=== PATIENT | female | born 2000 | race Hispanic/Latino ===

== ENCOUNTER 2023-07-22 02:59 | Emergency (ER) | payer SELFPAY ==
[2023-07-22] MEDS ORDERED: ACETAMINOPHEN 500 MG TAB ONE (03:42)
[2023-07-22] MEDS ORDERED: KETOROLAC 30 MG/ML INJ ONE (03:43)
[2023-07-22] MEDS ORDERED: methocarbamoL 500 MG TAB ONE (03:43)
--- NOTE | 2023-07-22 05:14 | ER ---
Nurse's Notes [facility] Name: Lyndsey Patel Age: 23 yrs Sex: Female : 2000 Arrival Date: 07/22/2023 Time: 02:59 Bed 20 Private MD: Diagnosis: Contusion of left forearm;Contusion of left lower leg;Abrasion of left forearm Presentation: 07/21 03:31 Chief complaint: Patient states: [place] jw7 My left arm, left leg and right shoulder hurt. Coronavirus screen: At this time, the client does not indicate any symptoms associated with coronavirus-19. Ebola Screen: No symptoms or risks identified at this time. Initial Sepsis Screen: Does the patient meet any 2 criteria? No. Patient's initial sepsis screen is negative. Does the patient have a suspected source of infection? No. Patient's initial sepsis screen is negative. Risk Assessment: Do you want to hurt yourself or someone else? Patient reports no desire to harm self or others. Onset of symptoms was July 22, 2023. 03:31 Method Of Arrival: Ambulatory [facility] 03:31 Acuity: RITESH 3 jw7 Triage Assessment: 03:34 General: Appears in no apparent distress. uncomfortable, Behavior is calm, cooperative, jw7 appropriate for age. Pain: Complains of pain in right scapular area, left arm and left leg Pain does not radiate. Pain currently is 8 out of 10 on a pain scale. Quality of pain is described as throbbing, stinging, Pain began suddenly, Is continuous. EENT: No deficits noted. No signs and/or symptoms were reported regarding the EENT system. Neuro: Level of Consciousness is awake, alert, obeys commands, Oriented to person, place, time, situation, Appropriate for age. Cardiovascular: Heart tones S1 S2 Capillary refill < 3 seconds Patient's skin is warm and dry. Respiratory: Airway is patent Trachea midline Respiratory effort is even, unlabored, Respiratory pattern is regular, symmetrical, Breath sounds are clear bilaterally. GI: Abdomen is round non-distended, Bowel sounds present X 4 quads. Abd is soft and non tender X 4 quads. : No deficits noted. No signs and/or symptoms were reported regarding the genitourinary system. Derm: Skin is healthy with good turgor, Skin is dry, Skin is normal, Skin temperature is warm Wound noted dorsal aspect of left forearm and left olson. Musculoskeletal: Circulation, motion, and sensation intact. Range of motion: intact in all extremities. 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 - Infectious Disease History:: Denies. - Social history:: Smoking status: Patient denies any tobacco usage or history of. Patient/guardian denies using alcohol, street drugs, IV drugs. Screenin:37 [facility] ED Fall Risk Assessment (Adult) History of falling in the last 3 months, jw7 including since admission Yes- single mechanical fall (1 pt) Confusion or Disorientation No (0 pts) Intoxicated or Sedated No (0 pts) Impaired Gait No (0 pts) Mobility Assist Device Used No (0 pt) Altered Elimination No (0 pt) Score/Fall Risk Level 0 - 2 = Low Risk Oriented to surroundings, Maintained a safe environment, Educated pt \T\ family on fall prevention, incl call for assistance when getting out of bed. Abuse screen: Denies threats or abuse. Denies injuries from another. Nutritional screening: No deficits noted. Tuberculosis screening: No symptoms or risk factors identified. Assessment: 03:37 General: See Triage Assessment. jw7 04:31 Reassessment: Patient appears in no apparent distress at this time. No changes from jw7 previously documented assessment. Patient and/or family updated on plan of care and expected duration. Pain level reassessed. Patient is alert, oriented x 3, equal unlabored respirations, skin warm/dry/pink. 05:21 Reassessment: Patient appears in no apparent distress at this time. Patient and/or jw7 family updated on plan of care and expected duration. Pain level reassessed. Patient is alert, oriented x 3, equal unlabored respirations, skin warm/dry/pink. Patient states symptoms have improved. Vital Signs: 03:31 Pulse 81; Resp 20 S; Temp 98.3(O); Pulse Ox 97% on R/A; Weight 90.72 kg; Height 5 ft. 4 jw7 in. ; Pain 8/10; 04:00 BP 114 / 93; Pulse 70; Resp 16 S; Pulse Ox 99% on R/A; jw7 05:00 BP 115 / 85; Pulse 68; Resp 17 S; Pulse Ox 99% on R/A; jw7 03:31 Body Mass Index 34.33 (90.72 kg, 162.56 cm) jw7 03:31 Pain Scale: Adult jw7 ED Course: 03:05 Patient arrived in ED. gm2 03:05 Rylan Sams MD is Attending Physician. ec2 03:31 Patricia Zamudio RN is Primary Nurse. jw7 03:34 Triage completed. jw7 03:34 Arm band placed on. jw7 03:37 Patient has correct armband on for positive identification. Bed in low position. Call jw7 light in reach. Provided Education on: Use of Call Light. 04:00 Forearm Left XRAY In Process Unspecified. EDMS 04:00 Tib Fib Left XRAY In Process Unspecified. EDMS 05:23 No provider procedures requiring assistance completed. Patient did not have IV access jw7 during this emergency room visit. Administered Medications: 03:55 Drug: Ketorolac IM 30 mg IM once Route: IM; Site: right deltoid; jw7 05:22 Follow up: Response: No adverse reaction; Marked relief of symptoms jw7 03:55 Drug: Acetaminophen PO 1000 mg PO once Route: PO; jw7 05:22 Follow up: Response: No adverse reaction; Marked relief of symptoms jw7 03:55 Drug: Methocarbamol PO 500 mg PO once Route: PO; jw7 05:22 Follow up: Response: No adverse reaction; Marked relief of symptoms jw7 Medication: 05:23 VIS not applicable for this client. jw7 Outcome: 05:13 Discharge ordered by . ec2 05:23 Discharged to home ambulatory, jw7 05:23 Condition: stable 05:23 Discharge instructions given to patient, Instructed on discharge instructions, follow up and referral plans. medication usage, Demonstrated understanding of instructions, follow-up care, medications, Prescriptions given X 1, 05:23 Patient left the ED. jw7 Signatures: [facility] Patricia Harvey RN RN jw7 Rylan Sams MD MD ec2 Noemi Croft gm2 Corrections: (The following items were deleted from the chart) 03:35 03:34 Home Meds: None; jw7 jw7
--- NOTE | 2023-07-22 05:14 | EDPHYS ---
Phys[facility] Documentation [facility] Name: Lyndsey Patel Age: 23 yrs Sex: Female : 2000 Arrival Date: 07/22/2023 Time: 02:59 Bed 20 Private MD: ED Physician Rylan Sams HPI: 07/21 03:29 This 23 yrs old Female presents to ER via Unassigned with complaints of Fall ec2 Injury, Arm Pain, Leg Pain. 03:29 Patient arrives today for evaluation after a fall. Complaining of left forearm and left ec2 leg pain. States her last tetanus shot was approximately 2 to 3 years ago. Patient reports no loss conscious, no blood thinners, no head or neck pain.. 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 - Infectious Disease History:: Denies. - Social history:: Smoking status: Patient denies any tobacco usage or history of. Patient/guardian denies using alcohol, street drugs, IV drugs. ROS: 03:29 Constitutional: as per hpi ec2 Exam: 03:29 Constitutional: GEN: NAD Head: atraumatic Eyes: EOMI Ears: External ears are ec2 normal. CV: regular rate LUNGS: no respiratory distress ABD: non-distended SKIN:abrasion to the left forearm as well as abrasion to the left anterior tibia. MSK: Mid forearm with significant swelling appreciated, intact distal neurovascular status. Proximal and distal joints with good range of motion. Left anterior tibia with TTP, no deformity present. Intact distal neurovascular status. NEURO: moves all extremities equally Vital Signs: 03:31 Pulse 81; Resp 20 S; Temp 98.3(O); Pulse Ox 97% on R/A; Weight 90.72 kg; Height 5 ft. 4 jw7 in. ; Pain 8/10; 04:00 BP 114 / 93; Pulse 70; Resp 16 S; Pulse Ox 99% on R/A; jw7 05:00 BP 115 / 85; Pulse 68; Resp 17 S; Pulse Ox 99% on R/A; jw7 03:31 Body Mass Index 34.33 (90.72 kg, 162.56 cm) 7 03:31 Pain Scale: Adult jw7 MDM: 03:24 Patient medically screened. ec2 03:30 Data reviewed: vital signs. ED course: Patient arrives today for evaluation after ec2 injuring her left forearm and left leg. Examination remarkable for MSK findings as above. Patient up-to-date on tetanus, will forego Boostrix. Will obtain radiographs of the left forearm and left tib-fib. Evaluating for differential diagnosis including bony fracture, contusion, abrasion.. 05:10 ED course: Forearm x-ray and tib-fib x-ray independently reviewed and interpreted by ec2 me, shows no acute bony fracture, no evidence of dislocation.. 07/21 03:29 Order name: Forearm Left XRAY; Complete Time: 06:30 ec2 07/21 03:29 Order name: Tib Fib Left XRAY; Complete Time: 06:30 ec2 Administered Medications: 03:55 Drug: Ketorolac IM 30 mg IM once Route: IM; Site: right deltoid; jw7 05:22 Follow up: Response: No adverse reaction; Marked relief of symptoms jw7 03:55 Drug: Acetaminophen PO 1000 mg PO once Route: PO; jw7 05:22 Follow up: Response: No adverse reaction; Marked relief of symptoms jw7 03:55 Drug: Methocarbamol PO 500 mg PO once Route: PO; jw7 05:22 Follow up: Response: No adverse reaction; Marked relief of symptoms jw7 Disposition Summary: 07/22/23 05:13 Discharge Ordered Notes: Location: Home ec2 Condition: Stable ec2 Diagnosis - Contusion of left forearm ec2 - Contusion of left lower leg ec2 - Abrasion of left forearm ec2 Followup: ec2 - With: Private Physician - When: - Reason: Re-evaluation by your physician Discharge Instructions: - Discharge Summary Sheet ec2 - Contusion, [id number] ec2 Forms: - Medication Reconciliation Form ec2 - Antibiotic Education ec2 - Prescription Opioid Use ec2 - Patient Portal Instructions ec2 - Leadership Thank You Letter ec2 Prescriptions: - methocarbamol 500 mg Oral tablet - take 2 tablets ORAL route 4 times per day; 20 tablet; Refills: 0, Product ec2 Selection Permitted Signatures: Dispatcher [employer] Patricia Harvey RN RN jw7 Rylan Sams MD MD ec2 Corrections: (The following items were deleted from the chart) 03:35 03:34 Home Meds: None; jw7 jw7
[2023-07-22 05:47] VITALS: BP 115/85; TEMP 98.3; O2SAT 99
--- NOTE | 2023-07-22 06:26 | RAD REPORT ---
EXAM DESCRIPTION: RAD - Tib Fib Left - 07/22/2023 3:58 am CLINICAL HISTORY: trauma COMPARISON: No comparisons FINDINGS/IMPRESSION: No acute fracture. No malalignment. No significant focal degenerative changes.
--- NOTE | 2023-07-22 06:28 | RAD REPORT ---
EXAM DESCRIPTION: RAD - Forearm Left - 07/22/2023 3:58 am CLINICAL HISTORY: trauma COMPARISON: No comparisons FINDINGS/IMPRESSION: No acute fracture. No malalignment. No significant focal degenerative changes.
== END 2023-07-22 05:23 | disposition home or self-care (01) ==
LOC: ER 02:59
DX: S50.812A Abrasion of left forearm, initial encounter (principal); S50.12XA Contusion of left forearm, initial encounter; S80.12XA Contusion of left lower leg, initial encounter
CPT/HCPCS: 96372; 99284